=== PATIENT | female | born 1935 | race Two or more races ===

== ENCOUNTER 2018-08-15 12:32 | Inpatient (IN) | payer OTHER, MEDICAID | END 2018-08-17 20:30 | disposition short-term general hospital (02) | LOC: ER 12:32 → TELE 14:27 → TELE-EAST 20:01 | DX: R07.89 Other chest pain (principal); B69.0 Cysticercosis of central nervous system; I10 Essential (primary) hypertension; E03.9 Hypothyroidism, unspecified; I67.2 Cerebral atherosclerosis; R53.1 Weakness; E87.6 Hypokalemia; E83.51 Hypocalcemia; E86.0 Dehydration ==

== ENCOUNTER 2022-04-15 | Emergency (ER) | payer OTHER, MEDICAID ==
[~2022-04-15] VITALS: Ht 152.4 cm; Wt 50.0 kg
[~2022-04-15] MED LIST: ASPI81CH43 PO; LEV50T PO
[2022-04-15 02:09] LABS: Basophils # (auto) 0 10 ^3/uL (0-0.2); Basophils % (auto) 0.4 % (0.0-2.0); Eosinophils # (auto) 0.2 10 ^3/uL (0-0.8); Eosinophils % (auto) 1.8 % (0.0-7.0); Hemoglobin 12.9 g/dL (12.2-16.2); Lymphocytes # (auto) 3.6 10 ^3/uL (0.4-5.4); Mean Corpuscular Volume 91.1 fL (80.0-100.0); Monocytes # (auto) 0.4 10 ^3/uL (0-1.3); Monocytes % (auto) 4.3 % (0.0-12.0); Neutrophils # (auto) 5.6 10 ^3/uL (1.6-8.6); Neutrophils % (auto) 56.5 % (37.0-80.0); Red Blood Cells 4.17 10^6/uL (4.0-5.20); Red Cell Distribution Width 15.4 % (11.8-14.3); White Blood Cell 9.8 10^3/uL (4.4-10.8)
[2022-04-15 02:35] LABS: Urine Bacteria FEW /hpf (None Seen); Urine Blood TRACE /uL (Negative); Urine Specific Gravity 1.006 (1.001-1.035); Urine WBC 6 /hpf (0 - 5)
[2022-04-15 02:46] LABS: Albumin 3.5 g/dL (3.4-5.0); BUN/Creatinine Ratio 17.2; Calcium 8.5 mg/dL (8.5-10.1); Potassium 3.8 mmol/L (3.5-5.1)
[2022-04-15 02:48] LABS: Total Protein 6.8 g/dL (6.4-8.2)
[2022-04-15] MEDS ORDERED: SODIUM CHLORIDE 0.9% 1,000 ML IV ONE ×2 (04:15→09:45)
[2022-04-15] MEDS ORDERED: CEFEPIME 2 GM in SODIUM CHL 0.9% 50 ML IV ONE (04:15)
[2022-04-15] MEDS ORDERED: CEFEPIME 1GM/ 50ML 100 ML IV ONE (04:34)
[2022-04-15 07:56] LABS: Alcohol, Urine < 3.0 mg/dL (0-10); Amphetamine Screen, Urine NEGATIVE (NEGATIVE); Barbiturate Scree,Urine NEGATIVE (NEGATIVE); Benzodiazephine Screen, Urine NEGATIVE (NEGATIVE); Cannabinoid Screen, Urine NEGATIVE (NEGATIVE); Cocaine Screen, Urine NEGATIVE (NEGATIVE); Opiate Scree,Urine NEGATIVE (NEGATIVE); Phencyclidine Screen, Urine NEGATIVE (NEGATIVE)
[2022-04-15 09:55] VITALS: BP 145/68
== END 2022-04-15 04:44 | disposition short-term general hospital (02) ==
LOC: ER → EDBD → ER 04:44
DX: R55 Syncope and collapse (principal); N39.0 Urinary tract infection, site not specified; R77.8 Other specified abnormalities of plasma proteins; I10 Essential (primary) hypertension; Z90.49 Acquired absence of other specified parts of digestive tract; Z90.710 Acquired absence of both cervix and uterus; Z88.6 Allergy status to analgesic agent; Z20.822 Contact with and (suspected) exposure to COVID-19
CPT/HCPCS: 36415; 36600; 70450; 71045; 72125; 80053; 80307; 80320; 81001; 82805; 84484; 85025; 87426; 93005; 96361; 96365; 96366; 99285; J0692; J7030

== ENCOUNTER 2023-03-22 12:12 | Emergency (ER) | payer OTHER, MEDICAID ==
[~2023-03-22] VITALS: Ht 162.6 cm; Wt 52.2 kg
[2023-03-22] MEDS ORDERED: SODIUM CHLORIDE 0.9% 500 ML IV ONE (12:30)
[2023-03-22 13:01] VITALS: PULSE 60; RESP 20; O2SAT 95
[2023-03-22 13:13] LABS: Basophils # (auto) 0 10 ^3/uL (0-0.2); Basophils % (auto) 0.8 % (0.0-2.0); Eosinophils # (auto) 0.1 10 ^3/uL (0-0.8); Eosinophils % (auto) 1.8 % (0.0-7.0); Hematocrit 36.7 % (36.0-46.0); Hemoglobin 12.6 g/dL (12.2-16.2); Lymphocytes % (auto) 22.3 % (10.0-50.0); Mean Corpuscular Hemoglobin 31.9 pg (28.0-32.0); Mean Corpuscular Hgb Conc. 34.4 g/dL (32.0-36.0); Mean Corpuscular Volume 92.9 fL (80.0-100.0); Monocytes # (auto) 0.3 10 ^3/uL (0-1.3); Monocytes % (auto) 5.3 % (0.0-12.0); Neutrophils # (auto) 3.3 10 ^3/uL (1.6-8.6); Neutrophils % (auto) 69.8 % (37.0-80.0); Red Blood Cells 3.95 10^6/uL (4.0-5.20); White Blood Cell 4.7 10^3/uL (4.4-10.8)
[2023-03-22 13:51] LABS: Albumin 3.4 g/dL (3.4-5.0); Calcium 8.5 mg/dL (8.5-10.1); Magnesium 2.7 mg/dL (1.6-2.6); Potassium 3.3 mmol/L (3.5-5.1)
[2023-03-22 13:55] LABS: BUN/Creatinine Ratio 12.4 (10.0-20.0); Bilirubin, Total 1.1 mg/dL (0.2-1.0); Total Protein 6.9 g/dL (6.4-8.2)
[2023-03-22 14:30] LABS: Urine Bacteria NONE SEEN /hpf (None Seen); Urine Blood Negative /uL (Negative); Urine Clarity Clear (Clear); Urine Color Yellow (Yellow); Urine Protein, UAD Negative (Negative); Urine Specific Gravity 1.004 (1.001-1.035); Urine Urobilinogen Normal (Negative); Urine WBC 1 /hpf (0 - 5)
[2023-03-22 15:34] LABS: COVID19 ANTIGEN SOFIA FIA NEGATIVE (NEGATIVE)
[2023-03-22] MEDS ORDERED: POTASSIUM CHL 20 Meq TABLET PO ONE (19:00)
[2023-03-22 19:45] VITALS: O2SAT 96
[2023-03-22 23:42] VITALS: BP 162/93; PULSE 60; RESP 16; TEMP 97.9; O2SAT 92
== END 2023-03-23 00:47 | disposition admitted as inpatient to this hospital (09) ==
LOC: ER 12:12 → EDBD 12:12 → ER 03-23 00:47
DX: R55 Syncope and collapse (principal); R53.1 Weakness; I10 Essential (primary) hypertension; Z88.8 Allergy status to other drugs, medicaments and biological substances; Z88.6 Allergy status to analgesic agent; Z86.73 Personal history of transient ischemic attack (TIA), and cerebral infarction without residual deficits; Z90.49 Acquired absence of other specified parts of digestive tract; Z90.710 Acquired absence of both cervix and uterus; Z20.822 Contact with and (suspected) exposure to COVID-19
CPT/HCPCS: 36415; 70450; 71045; 72125; 80053; 81001; 83605; 83735; 84484; 85025; 87040; 87426; 93005; 96360; 99285; J7040

== ENCOUNTER 2025-03-13 14:25 | Emergency (ER) | payer OTHER, MEDICAID ==
[~2025-03-13] VITALS: Ht 152.4 cm; Wt 63.6 kg
[~2025-03-13 14:25] MED LIST changes: -LEV50T PO; +LEVO-848 PO
[2025-03-13 14:41] VITALS: TEMP 98.2
--- NOTE | 2025-03-13 14:50 | ED.PDOC ---
HPI Comments This is a 89 year old female ERINA presenting to the ED with chief complaint of laceration s/p fall. EMS reports patient had accidentally rolled out of her bed this afternoon, hitting the right side of her forehead against hardwood sarah. EMS relays that the patient is also complaining of associated right elbow pain. Patient denies any LOC, nausea, vomiting, dizziness, headache, SOB, or chest pain. Time Seen by MD: 14:49 Reviewed Notes: Nurses Notes, Gauntlet Pairer Notes, Medications, Allergies Allergies: Coded Allergies: Tramadol (Verified Allergy, Severe, 08/15/18) Home Meds Reported Medications Levothyroxine Sodium (SYNTHROID TABLET) 50 Mcg Tb, 1 TAB PO DAILY, #30 TAB 5 Refills 08/15/18 Aspirin (Asa) 81 Mg Ch, 81 MG PO DAILY 08/15/18 Information Source: Patient, Emergency Med Personnel Mode of Arrival: EMS Severity: Moderate Severity of Laceration: Controlled Bleeding Complexity: Simple Timing: Hours Prehospital treatment: None Laceration Location: Forehead Mechanism: Fall Last Tetanus: Unknown Laceration Length (cm): 2 Skin Type: Linear Depth of Injury: SQ Tendon Injury: 0% Tender: Moderate Discharge: Serosanguinous Erythema: Localized to Wound Edges Past Medical History PAST MEDICAL HISTORY: HTN, Thyroid, TIA Surgical History: Cholecystectomy, Hysterectomy, Pacemaker 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: No Pertinent 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 Family History Family History: Reviewed,noncontributory to illness, Unknown Social History Smoker: Non-Smoker Alcohol: Denies ETOH Use Drugs: Denies Drug Use Lives In: Home Constitutional: denies: chills, diaphoresis, fatigue, fever, malaise, sweats, weakness, others EENTM: denies: blurred vision, double vision, ear bleeding, ear discharge, ear drainage, ear pain, ear ringing, eye pain, eye redness, hearing loss, mouth pain, mouth swelling, nasal discharge, nose bleeding, nose congestion, nose pain, photophobia, tearing, throat pain, throat swelling, voice changes, others Respiratory: denies: cough, hemoptysis, orthopnea, SOB at rest, shortness of breath, SOB with excertion, stridor, wheezing, others Cardiovascular: denies: chest pain, dizzy spells, diaphoresis, Dyspnea on exertion, edema, irregular heart beat, left arm pain, lightheadedness, palpitations, PND, syncope, others Gastrointestinal: denies: abdomen distended, abdominal pain, blood streaked bowels, constipated, diarrhea, dysphagia, difficulty swallowing, hematemesis, melena, nausea, poor appetite, poor fluid intake, rectal bleeding, rectal pain, vomiting, others Genitourinary: denies: abnormal vagina bleeding, burning, dyspareunia, dysuria, flank pain, frequency, hematuria, incontinence, pain, , vagina discharge, urgency, others Neurological: denies: dizziness, fainting, headache, left sided numbness, left sided weakness, numbness, paresthesia, pre-existing deficit, right sided numbness, right sided weakness, seizure, speech problems, tingling, tremors, weakness, others Musculoskeletal: reports: others (Rt elbow pain); denies: back pain, gout, joint pain, joint swelling, muscle pain, muscle stiffness, neck pain Integumetry: reports: laceration; denies: bruises, change in color, change in hair/nails, dryness, lesions, lumps, rash, wounds, others Allergic/Immunocompromised: denies: Difficulty Healing, Frequent Infections, Hives, Itching, others Hematologic/Lymphatic: denies: anemia, blood clots, easy bleeding, easy bruising, swollen glands, others Endocrine: denies: excessive hunger, excessive sweating, excessive thirst, excessive urination, flushing, intolerance to cold, intolerance to heat, unexplained weight gain, unexplained weight loss, others Psychiatric: denies: anxiety, bipolar disorder, depression, hopeless, panic disorder, schizophrenia, sleepless, suicidal, others All Other Systems: Reviewed and Negative Physical Exam General Appearance: Moderate Distress, Normal HEENT: Normal ENT Inspection, Pharynx Normal, TMs Normal Neck: Full Range of Motion, Non-Tender, Normal, Normal Inspection Respiratory: Chest Non-Tender, Lungs Clear, No Accessory Muscle Use, No Respiratory Distress, Normal Breath Sounds Cardiovascular: No Edema, No JVD, No Murmur, No Gallop, Normal Peripheral Pulses, Regular Rate/Rhythm Breast Exam: Deferred Gastrointestinal: No Organomegaly, Non Tender, No Pulsatile Mass, Normal Bowel Sounds, Soft Genitalia: Deferred Pelvic: Deferred Rectal: Deferred Extremities: No calf tenderness, Normal capillary refill, Normal inspection, Normal range of motion, Non-tender, No pedal edema Musculoskeletal : Apperance: Normal Neurologic: Alert, stretching machine tender frame II-XII nml as Tested, No Motor Deficits, Normal Affect, Normal Mood, No Sensory Deficits Cerebellar Function: NOT DONE Reflexes: NOT DONE Skin: Dry, Lacerations (Right eyebrow), Normal Color, Warm Peripheral Pulses: 3+ Radial (R), 3+ Radial (L) Lymphatic: No Adenopathy Was a procedure done? Was a procedure done?: Yes Sedation Sedation?: No Laceration Repair : Location Rt forehead Length 2cm Anesthetic: Lidocaine, Without epi Laceration Repair Prep: Saline, by Irrigation, Manual Scrub Laceration Repair Wound Comple: subcut tissue repair Laceration Repair: Number of sutures (6, 3-0 Ethilon sutures), SQ Informed consent obtained: Yes Risks, benefits, and alternati: Yes EKG EKG : Pulse Rate (adult): 60 Cardiac Rhythm: Paced Differential diagnosis Generic Laceration: Abrasion/Contusion, Laceration X-Ray, Labs, Meds, VS Vital Signs Date Time Temp Pulse Resp B/P (MAP) Pulse Ox O2 Delivery O2 Flow Rate FiO2 03/13/25 14:55 60 03/13/25 14:55 60 03/13/25 14:41 98.2 61 16 138/94 95 98.2 Lab Test 03/13/25 15:11 Range/Units POC Glucose 120 H 70-106 mg/dl Current Medications Medications (Trade) Dose Ordered Sig/Devorah Route Start Time Stop Time Status Last Admin Diphtheria/ Tetanus/Acell Pertussis (Boostrix T-Dap) 0.5 ml ONCE ONCE IM 03/13/25 15:00 03/13/25 15:01 DC 03/13/25 15:17 Sodium Chloride 1,000 ml @ 1,000 mls/hr Q1H ONCE IV 03/13/25 16:30 03/13/25 17:29 03/13/25 16:30 Patient alert. Status post fall. Small laceration of the right eyebrow. Vitals stable. Answering questions. No other injuries. Denies any other symptoms. Moving all extremities. Unknown about tetanus. Was given tetanus. CT of the head reviewed does not show any acute changes. Explained to the patient. Was told to follow up with her primary care physician. Was told to come back if there is any problem. CT Head: [facility] [id number] [place] [id number] Ph: [phone] DIAGNOSTIC IMAGING Diagnostic Imaging Report : [id number] Signed PATIENT: CHAPINCITO CARRASQUILLOCT: [id number] UNIT: [id number] : 1935 LOC: ER ROOM / BED: / AGE / SEX: 89 / F ADM STATUS: REG ER SERVICE 1451 ORDERING PHYSICIAN: ANA HUNT MD PROCEDURE(s): HWOCT - HEAD WITHOUT CONTRAST REASON: fall ORDER NUMBER(s): [id number], ACCESSION NUMBER(s): [id number] Procedure: CT HEAD WITHOUT CONTRAST Study Date and Requested Time: 03/13/2025 03:49 PM History: fall Comparison: CT HEAD WITHOUT CONTRAST on DOS: 03/22/23, HEAD WITHOUT CONTRAST on DOS: 04/15/22 Dose: CTDI: 52.27 mGy DLP: 733.5 cm mGycm Technique: Multiplanar images obtained through the brain without intravenous contrast. Findings: Mild diffuse brain atrophy. Mild chronic small-vessel ischemic changes. Bilateral caudate heads chronic lacunar infarcts. Right basal ganglia calcification. 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 No hemorrhages, masses, mass effect, midline shift, herniation or cytotoxic edema following a large vascular territory. No intra-axial or extra-axial fluid collections. No evidence of hydrocephalus. The basal cisterns are patent. The pituitary gland, sella and parasellar regions are unremarkable. The cerebellar tonsils are in normal position. The cerebellum is unremarkable. There is Bilateral lens replacement. Otherwise, orbits and globes are unremarkable. The paranasal sinuses and mastoids are clear. No acute osseous abnormalities. Right anterolateral supraorbital soft tissue edema and wound with right zygomatic region soft tissue edema. Impression: No evidence of acute intracranial abnormality. Right anterolateral supraorbital soft tissue edema and wound with right zygomatic region soft tissue edema. ATED BY: ISELA WORLEY DO DICTATED DATE/TIME: 03/13/251625 SIGNED BY: ISELA WORLEY DO SIGNED DATE/TIME: 03/13/251625 CC: Rt Elbow XR: [address] [address] Ph: [phone] DIAGNOSTIC IMAGING Diagnostic Imaging Report : [id number] Signed PATIENT: CHAPINCITO CARRASQUILLOCT: [id number] UNIT: [id number] : 1935 LOC: ER ROOM / BED: / AGE / SEX: 89 / F ADM STATUS: REG ER SERVICE 1451 ORDERING PHYSICIAN: ANA HUNT MD PROCEDURE(s): RELB - R ELBOW 2V XRAY REASON: fall ORDER NUMBER(s): [id number], ACCESSION NUMBER(s): [id number] XY R ELBOW 2V XRAY, INDICATION: fall TECHNICAL DATA: Frontal, and lateral views were obtained of the right elbow. COMPARISON: None FINDINGS: No fracture is identified. Joint spaces are maintained. Alignment at the joint is anatomic. Soft tissues are within normal limits. No joint effusion is demonstrated. IMPRESSION: No acute fracture or dislocation of the right elbow. ATED BY: MARIANO FRANK MD DICTATED DATE/TIME: 03/13/25 163 SIGNED BY: MARIANO FRANK MD SIGNED DATE/TIME: 03/13/25 163 CC: Images Reviewed?: Images reviewed and evaluated by me Time of 1ST Reevaluation: 15:48 Reevaluation 1ST: Improved Patient Education/Counseling: Diagnosis, Treatment Family Education/Counseling: No Family Present Departure 1 Departure Time of Disposition: 14:54 Impression: Primary Impression: Head injury Qualified Codes: S09.90XA - Unspecified injury of head, initial encounter Additional Impression: Laceration Disposition: 01 HOME / SELF CARE / HOMELESS Condition: Good Discharged With: Self Critical Care Note Critical Care Time?: No Stability Stability form required: No Heart Score Heart Score: Heart Score Response (Comments) Value History Slightly Suspicious 0 EKG Normal 0 Age >65 2 Risk Factors >3 or Hx ASHD 2 Troponin N/A 0 Total 4 I personally scribed for ANA HUNT MD ([email or web address]) on 03/13/25 at 14:50. Electronically submitted by Jasper Ricci ([email or web address]). I personally scribed for ANA HUNT MD ([email or web address]) on 03/13/25 at 16:36. Electronically submitted by Jasper Ricci ([email or web address]). I personally scribed for ANA HUNT MD ([email or web address]) on 03/13/25 at 16:36. Electronically submitted by Jasper Ricci ([email or web address]). I personally scribed for ANA HUNT MD ([email or web address]) on 03/13/25 at 16:44. Electronically submitted by Jasper Ricci ([email or web address]). I personally scribed for ANA HUNT MD ([email or web address]) on 03/13/25 at 16:57. Electronically submitted by Jasper Ricci ([email or web address]). ANA HUNT MD Mar 13, 2025 14:50
[2025-03-13] MEDS: TETANUS-DIPTH-ACEL PERTUSSIS 0.5ML SYR Tdap IM ONE (15:17)
[2025-03-13 15:35] VITALS: PULSE 60; RESP 19; O2SAT 100
[2025-03-13] MEDS: GASTROGRAFIN 120 ML SOL ONE (15:56)
--- NOTE | 2025-03-13 16:28 | DVH ---
Procedure: CT HEAD WITHOUT CONTRAST Study Date and Requested Time: 03/13/2025 03:49 PM History: fall Comparison: CT HEAD WITHOUT CONTRAST on DOS: 03/22/23, HEAD WITHOUT CONTRAST on DOS: 04/15/22 Dose: CTDI: 52.27 mGy DLP: 733.5 cm mGycm Technique: Multiplanar images obtained through the brain without intravenous contrast. Findings: Mild diffuse brain atrophy. Mild chronic small-vessel ischemic changes. Bilateral caudate heads chron ic lacunar infarcts. Right basal ganglia calcification. Right mesial frontal lobe, right occipital lobe , right parieto-occipital , right occipito-temporal a nd left frontal lobe nonspecific foci of Calcifications which May represent sequela of prior neurocys ticercosis. No hemorrhages, masses, mass effect, midline shift, herniation or cytotoxic edema following a large v ascular territory. No intra-axial or extra-axial fluid collections. No evidence of hydrocephalus. The basal cisterns are patent. The pituitary gland, sella and parasellar regions are unremarkable. The cerebellar tonsils are in nor mal position. The cerebellum is unremarkable. There is Bilateral lens replacement. Otherwise, orbits and globes are unremarkable. The paranasal si nuses and mastoids are clear. No acute osseous abnormalities. Right anterolateral supraorbital soft t issue edema and wound with right zygomatic region soft tissue edema. Impression: No evidence of acute intracranial abnormality. Right anterolateral supraorbital soft tissue edema and wound with right zygomatic region soft tissue edema.
[2025-03-13] MEDS: SODIUM CHLORIDE 0.9% 1,000 ML IV ONE (16:30)
--- NOTE | 2025-03-13 16:32 | DVH ---
XY R ELBOW 2V XRAY, INDICATION: fall TECHNICAL DATA: Frontal, and lateral views were obtained of the right elbow. COMPARISON: None FINDINGS: No fracture is identified. Joint spaces are maintained. Alignment at the joint is anatomic. Soft tiss ues are within normal limits. No joint effusion is demonstrated. IMPRESSION: No acute fracture or dislocation of the right elbow.
[2025-03-13 17:28] VITALS: BP 161/88; PULSE 60; RESP 12; O2SAT 94
--- NOTE | 2025-03-13 18:28 | ECG ---
[facility] Test Date: 2025-03-13 Test Time: 14:52:00 Pat Name: KORINA CARRASQUILLO Department: ED Room: Gender: F Project Lead: OMEGA : 1935 Requested By: ANA HUNT Order Number: [id number] Reading MD: Vadim Lynch Measurements Intervals Shelley Rate: 60 P: 0 WI: 60 QRS: -31 QRSD: 117 T: 147 QT: 449 QTc: 449 Interpretive Statements Atrial-paced rhythm Nonspecific intraventricular conduction delay Inferior infarct, old Lateral leads are also involved Electronically Signed On 03-16-2025 22:02:33 PDT by Vadim Lynch Please click the below link to view image of tracing.
== END 2025-03-13 18:10 | disposition home or self-care (01) ==
LOC: EDBD 14:25 → ER 14:25
DX: S01.81XA Laceration without foreign body of other part of head, initial encounter (principal); R06.02 Shortness of breath; Z79.899 Other long term (current) drug therapy; I10 Essential (primary) hypertension; E03.9 Hypothyroidism, unspecified; Z79.82 Long term (current) use of aspirin; Z86.73 Personal history of transient ischemic attack (TIA), and cerebral infarction without residual deficits; Z90.49 Acquired absence of other specified parts of digestive tract; Z90.710 Acquired absence of both cervix and uterus; Z95.0 Presence of cardiac pacemaker; Z88.5 Allergy status to narcotic agent; W22.03XA Walked into furniture, initial encounter; Y93.89 Activity, other specified; Y92.89 Other specified places as the place of occurrence of the external cause; Y99.8 Other external cause status
CPT/HCPCS: 12011; 70450; 73070; 82947; 90471; 90715; 93005; 99285; J7030; Q9963; 82962

== ENCOUNTER 2025-03-17 14:54 | Inpatient (IN) | payer OTHER, MEDICAID ==
[~2025-03-17] VITALS: Ht 157.5 cm; Wt 55.4 kg
--- NOTE | 2025-03-17 15:28 | ED.PDOC ---
History of Present Illness HPI Comments 89y F who presents to the ED via EMS for chief complaint of hypotension. Per EMS, pt was sitting down 1 hour prior and pt caregiver states pt told her she felt dizzy and felt she was going to have a syncopal episode. Pt did not have syncopal episode but states she started to have chest pain and EMS was called. Pt states her chest pain was 8/10, but otherwise denies any other symptoms. EMS arrived on scene and checked vitals, and noted BP of 70/48 and pt was given 500 ml bolus and pt BP judy of 115/55. EMS notes pt had 02 sat of 92% on room air and pt 02 sat judy of 95% on 2 L. Pt now in the ED, is alert and oriented. Pt does have noted facial trauma and caregiver states pt did have fall on sunday, 4 days prior and was evaluated with noted stitches placed and discharged. Time Seen by MD: 15:15 Reviewed Notes: Nurses Notes, Medications, Allergies Allergies: Coded Allergies: Tramadol (Verified Allergy, Severe, 08/15/18) Home Meds Reported Medications Levothyroxine Sodium (SYNTHROID TABLET) 50 Mcg Tb, 1 TAB PO DAILY, #30 TAB 5 Refills 08/15/18 Aspirin (Asa) 81 Mg Ch, 81 MG PO DAILY 08/15/18 Information Source: Patient, Friend (caregiver), Emergency Med Personnel Mode of Arrival: EMS Severity: Moderate Timing: Hours Duration: Since onset Prehospital treatment: IVF Medication Refill: For: Other (hypotension) Past Medical History PAST MEDICAL HISTORY: HTN, Thyroid, TIA Surgical History: Cholecystectomy, Hysterectomy, Pacemaker RN ADMISSIONS History: No Pertinent RN ADMISSIONS History Family History Family History: Reviewed,noncontributory to illness, Unknown Social History Smoker: Non-Smoker Alcohol: Denies ETOH Use Drugs: Denies Drug Use Lives In: Home Constitutional: reports: malaise, weakness; denies: chills, diaphoresis, fatigue, fever, sweats, others EENTM: denies: blurred vision, double vision, ear bleeding, ear discharge, ear drainage, ear pain, ear ringing, eye pain, eye redness, hearing loss, mouth pain, mouth swelling, nasal discharge, nose bleeding, nose congestion, nose pain, photophobia, tearing, throat pain, throat swelling, voice changes, others Respiratory: denies: cough, hemoptysis, orthopnea, SOB at rest, shortness of breath, SOB with excertion, stridor, wheezing, others Cardiovascular: denies: chest pain, dizzy spells, diaphoresis, Dyspnea on exertion, edema, irregular heart beat, left arm pain, lightheadedness, palpitations, PND, syncope, others Gastrointestinal: denies: abdomen distended, abdominal pain, blood streaked bowels, constipated, diarrhea, dysphagia, difficulty swallowing, hematemesis, melena, nausea, poor appetite, poor fluid intake, rectal bleeding, rectal pain, vomiting, others Genitourinary: denies: abnormal vagina bleeding, burning, dyspareunia, dysuria, flank pain, frequency, hematuria, incontinence, pain, , vagina discharge, urgency, others Neurological: denies: dizziness, fainting, headache, left sided numbness, left sided weakness, numbness, paresthesia, pre-existing deficit, right sided n umbness, right sided weakness, seizure, speech problems, tingling, tremors, weakness, others Musculoskeletal: denies: back pain, gout, joint pain, joint swelling, muscle pain, muscle stiffness, neck pain, others Integumetry: denies: bruises, change in color, change in hair/nails, dryness, laceration, lesions, lumps, rash, wounds, others Allergic/Immunocompromised: denies: Difficulty Healing, Frequent Infections, Hives, Itching, others Hematologic/Lymphatic: denies: anemia, blood clots, easy bleeding, easy bruising, swollen glands, others Endocrine: denies: excessive hunger, excessive sweating, excessive thirst, excessive urination, flushing, intolerance to cold, intolerance to heat, unexplained weight gain, unexplained weight loss, others Psychiatric: denies: anxiety, bipolar disorder, depression, hopeless, panic disorder, schizophrenia, sleepless, suicidal, others All Other Systems: Reviewed and Negative Physical Exam General Appearance: Moderate Distress HEENT: Pharynx Normal, TMs Normal, Other (Bruising to the facial area) Neck: Full Range of Motion, Non-Tender, Normal, Normal Inspection Respiratory: Chest Non-Tender, Lungs Clear, No Accessory Muscle Use, No Respiratory Distress, Normal Breath Sounds Cardiovascular: No Edema, No JVD, No Murmur, No Gallop, Normal Peripheral Pulses, Regular Rate/Rhythm Breast Exam: Deferred Gastrointestinal: No Organomegaly, Non Tender, No Pulsatile Mass, Normal Bowel Sounds, Soft Genitalia: Deferred Pelvic: Deferred Rectal: Deferred Extremities: No calf tenderness, Normal capillary refill, No pedal edema Musculoskeletal : Apperance: Normal 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 Was a procedure done?: No EKG EKG : Pulse Rate (adult): 60 [place]: Normal Cardiac Rhythm: Paced Block: None Hypertrophy: None ST: Normal Differential Dx Considerations may include: dehydration, anemia, sepsis, angina, PNA, UTI, generalized weakness, X-Ray, Labs, Meds, VS Vital Signs Date Time Temp Pulse Resp B/P (MAP) Pulse Ox O2 Delivery O2 Flow Rate FiO2 03/17/25 19:03 98.3 92 18 113/62 (79) 98 98.3 03/17/25 18:11 60 03/17/25 18:00 119 19 124/64 (84) 97 03/17/25 17:30 Room Air* 0 21 03/17/25 16:25 60 03/17/25 15:45 97.9 60 16 115/55 95 97.9 03/17/25 15:28 60 03/17/25 15:01 60 Lab Test 03/17/25 15:37 03/17/25 15:25 Range/Units White Blood Count 5.2 4.4-10.8 10^3/uL Red Blood Count 3.45 L 4.0-5.20 10^6/uL Hemoglobin 11.2 L 12.2-16.2 g/dL Hematocrit 32.7 L 36.0-46.0 % Mean Corpuscular Volume 94.9 80.0-100.0 fL Mean Corpuscular Hemoglobin 32.6 H 28.0-32.0 pg Mean Corpuscular Hemoglobin Concent 34.3 32.0-36.0 g/dL Red Cell Distribution Width 15.1 H 11.8-14.3 % Platelet Count 166 140-450 10^3/uL Mean Platelet Volume 8.0 6.9-10.8 fL Neutrophils (%) (Auto) 65.1 37.0-80.0 % Lymphocytes (%) (Auto) 26.0 10.0-50.0 % Monocytes (%) (Auto) 6.2 0.0-12.0 % Eosinophils (%) (Auto) 2.2 0.0-7.0 % Basophils (%) (Auto) 0.5 0.0-2.0 % Neutrophils # (Auto) 3.3 1.6-8.6 10 ^3/uL Lymphocytes # (Auto) 1.3 0.4-5.4 10 ^3/uL Monocytes # (Auto) 0.3 0-1.3 10 ^3/uL Eosinophils # (Auto) 0.1 0-0.8 10 ^3/uL Basophils # (Auto) 0 0-0.2 10 ^3/uL Nucleated Red Blood Cells 0.1 % Sodium Level 142 136-145 mmol/L Potassium Level 3.4 L 3.5-5.1 mmol/L Chloride Level 109 H 98-107 mmol/L Carbon Dioxide Level 27 20-31 mmol/L Anion Gap 6 5-15 Blood Urea Nitrogen 18 9-23 mg/dL Creatinine 1.40 H 0.550-1.02 mg/dL Glomerular Filtration Rate Calc 36 >90 mL/min BUN/Creatinine Ratio 12.9 10.0-20.0 Serum Glucose 101 74-106 mg/dL Calcium Level 7.8 L 8.7-10.4 mg/dL Troponin I High Sensitivity 549 *H </=34 ng/L Lactic Acid Level 1.2 0.4-2.0 mmol/L IV Hep-Lock was established The CBC is within normal limits except for mild anemia with a hemoglobin of 11.2 hematocrit of 32.7 The chemistry panel is within normal limits The 1st troponin level came back at 549 We did review the EKG with Dr. Morse because the patient has a pacemaker. Dr. Morse will come and evaluate the patient. The patient did receive aspirin The patient is being admitted at this time. We did contact [facility] and did let them know that the patient was unstable for transfer secondary to the hypotension as well as the possible non STEMI They gave authorization for admission with an authorization number of [id number] Images Reviewed?: Images reviewed and evaluated by me Time of 1ST Reevaluation: 17:48 Reevaluation 1ST: Unchanged Patient Education/Counseling: Diagnosis, Treatment, Prognosis Family Education/Counseling: Diagnosis, Treatment, Prognosis SEPSIS Sepsis Screen Physician Orders Urinalysis (03/17/25 15:17) Head Without Contrast (03/17/25 15:17) Directional Driller (03/17/25 15:17) Pulse Oximetry (03/17/25 15:17) Blood Pressure (03/17/25 15:17) Heplock Iv (03/17/25 15:17) Blood Culture (03/17/25 15:17) Vital Signs Date Time Temp Pulse Resp B/P (MAP) Pulse Ox O2 Delivery O2 Flow Rate FiO2 03/17/25 19:03 98.3 92 18 113/62 (79) 98 98.3 03/17/25 18:11 60 03/17/25 18:00 119 19 124/64 (84) 97 03/17/25 17:30 Room Air* 0 21 03/17/25 16:25 60 03/17/25 15:45 97.9 60 16 115/55 95 97.9 03/17/25 15:28 60 03/17/25 15:01 60 Laboratory Tests Test 03/17/25 15:25 03/17/25 15:37 Lactic Acid Level 1.2 mmol/L (0.4-2.0) White Blood Count 5.2 10^3/uL (4.4-10.8) Departure 1 Departure Time of Disposition: 17:48 Impression: Primary Impression: Chest pain Qualified Codes: R07.9 - Chest pain, unspecified Additional Impressions: Episode of syncope Qualified Codes: R55 - Syncope and collapse Generalized weakness Non-STEMI (non-ST elevated myocardial infarction) Disposition: 09 ADMITTED INPATIENT Admit to: Tele Condition: Fair Critical Care Note Critical Care Time?: Yes (55 min-critical care time only) Stability Stability form required: Yes Unstable for transfer: Telemetry monitoring (Telemetry monitoring required), ED Physician Assesment (Clinical assesment) Heart Score Heart Score: Heart Score Response (Comments) Value History Moderate Suspicious 1 EKG Repolarization Disturb 1 Age >65 2 Risk Factors 1 or 2 risk factors 1 Troponin >3 x's Normal limit 2 Total 7 I personally scribed for MANUEL PERRY MD ([email or web address]) on 03/17/25 at 15:28. Electronically submitted by Raya Chapman ([email or web address]). MANUEL PERRY MD Mar 17, 2025 15:28
[2025-03-17 15:58] LABS: Hematocrit 32.7 % (36.0-46.0); Hemoglobin 11.2 g/dL (12.2-16.2); Mean Corpuscular Hemoglobin 32.6 pg (28.0-32.0); Mean Corpuscular Volume 94.9 fL (80.0-100.0); Nucleated Red Blood Cells % 0.1 %
[2025-03-17 16:04] LABS: Anion Gap 6 (5-15); Carbon Dioxide 27 mmol/L (20-31); Sodium 142 mmol/L (136-145)
[2025-03-17 16:07] LABS: Calcium 7.8 mg/dL (8.7-10.4); Chloride 109 mmol/L (98-107); Potassium 3.4 mmol/L (3.5-5.1)
[2025-03-17 16:10] LABS: BUN/Creatinine Ratio 12.9 (10.0-20.0); Blood Urea Nitrogen 18 mg/dL (9-23); Glucose 101 mg/dL (74-106)
--- NOTE | 2025-03-17 16:28 | ECG ---
[facility] Test Date: 2025-03-17 Test Time: 16:25:51 Pat Name: KORINA CARRASQUILLO Department: ER Room: 0221T Gender: F Cutter First: MADINA : 1935 Requested By: MANUEL PERRY Order Number: [id number] Reading MD: Vadim Lynch Measurements Intervals [place] Rate: 60 P: 0 [place]: 186 QRS: 2 QRSD: 125 T: 139 QT: 464 QTc: 464 Interpretive Statements Atrial-paced rhythm Nonspecific intraventricular conduction delay Inferior infarct, old Lateral leads are also involved Low voltage in frontal leads Electronically Signed On 03-23-2025 17:44:20 PDT by Vadim Lynch Please click the below link to view image of tracing.
--- NOTE | 2025-03-17 18:22 | DVH ---
CT HEAD WITHOUT CONTRAST Indication: lozano EXAM DATE: 03/17/2025 05:53 PM COMPARISON: CT HEAD WITHOUT CONTRAST on DOS: 03/13/25, CT HEAD WITHOUT CONTRAST on DOS: 03/22/23, HEAD W ITHOUT CONTRAST on DOS: 04/15/22 TECHNIQUE: CT of the head without intravenous contrast. RADIATION DOSE: CTDIvol: 51.94 mGy, DLP: 51.94 mGy*cm FINDINGS: There is no intracranial hemorrhage. There is no extra-axial fluid, mass, mass effect or midline shif t. The ventricles are midline and normal in size. Basilar cisterns are patent. There are mild periven tricular and subcortical white matter chronic microvascular ischemic changes. 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 Mild global cerebral volume loss. The paranasal sinuses and mastoids are well-pneumatized. Imaged portion of the orbits are unremarkabl e. Small right frontal scalp hematoma IMPRESSION: No intracranial hemorrhage or mass effect. Mild chronic microvascular ischemic changes. Mild global cerebral volume loss. Small right frontal scalp hematoma.
[2025-03-17] MEDS ORDERED: MORPHINE SULFATE INJ 2 MG/ml SYRG IV PRN (20:00)
[2025-03-17] MEDS ORDERED: ACETAMINOPHEN 325 MG TAB PO PRN (20:00)
[2025-03-17] MEDS ORDERED: ONDANSETRON HCL 4 MG/2 ML VIAL IV PRN (20:00)
[2025-03-17] MEDS: ENOXAPARIN SOD 60 MG/0.6 ML SYRINGE SC ONE (20:00)
[2025-03-17] MEDS ORDERED: NITROGLYCERIN 0.4 MG SL TAB SL PRN (20:00)
[2025-03-17 20:26] VITALS: PULSE 60; RESP 20; O2SAT 97
[2025-03-17] MEDS: ATORVASTATIN 20 MG TAB PO SCH (21:34)
[2025-03-17 21:45] VITALS: PULSE 62; RESP 18; O2SAT 98
--- NOTE | 2025-03-17 21:57 | DVHHP2 ---
History of Present Illness Reason for Visit: Low blood pressure History of Present Illness 89-year-old female presents for evaluation of low blood pressure. Patient was seen four days ago after sustaining a fall when she became dizzy and fell. She was discharged home in stable condition. Today she returns again neutrophilic dizzy and having a near syncopal episode. Her blood pressure was low in the 70s. Currently she is alert and oriented. Denies chest pain or palpitations. No other acute complaints. Past Medical History Hypotension, thyroid, TIA Past Surgical History Hysterectomy, pacemaker, cholecystectomy Family History Noncontributory Smoke: No ALCOHOL: none Drugs: None Lives: with Family Review of Systems Review of Systems Review of systems are currently negative otherwise addressed in HPI. Allergies: Coded Allergies: Tramadol (Verified Allergy, Severe, 08/15/18) Medications Current Medications Medications Dose Ordered Sig/Devorah Route Start Time Stop Time Status Last Admin Dose Admin Nitroglycerin 0.4 mg Q5MINP PRN SL 03/17/25 20:00 Morphine Sulfate 2 mg Q30M PRN IV 03/17/25 20:00 Levothyroxine Sodium 50 mcg QAM@0600 PO 03/18/25 06:00 Atorvastatin Calcium 40 mg HS PO 03/17/25 22:00 03/17/25 21:34 40 MG Ondansetron HCl 4 mg Q4HP PRN IV 03/17/25 20:00 Enoxaparin Sodium 30 mg DAILY@1800 SC 03/18/25 18:00 Acetaminophen 650 mg Q6HP PRN PO 03/17/25 20:00 Exam Vital Signs Vital Signs Date Time Temp Pulse Resp B/P (MAP) Pulse Ox O2 Delivery O2 Flow Rate FiO2 03/17/25 20:26 60 20 97 Room Air* 0 21 03/17/25 20:26 98.2 120/76 (91) 98.2 Exam Gen: 89-year-old female in no apparent distress Skin: Warm, dry, normal color and texture, no rash. HEENT: Normocephalic atraumatic, mucous membranes moist and pink. Neck: Cervical and supraclavicular nodes normal without enlargement, trachea is midline, thyroid gland is normal without masses. Pulmonary: Clear to auscultation and percussion bilaterally. Cardiac: Regular rate and rhythm. No murmur Abdomen: Soft, nontender, nondistended, bowel sounds present all 4 quadrants, no guarding, no rigidity, no organomegaly. Extremities: No cyanosis, clubbing, no edema Neuro: Cranial nerves II through XII grossly intact, normal affect and speech, no focal motor deficits. Labs/Xrays GE / SEX: 89 / F ADM STATUS: REG ER SERVICE [id number] ORDERING PHYSICIAN: MANUEL PERRY MD PROCEDURE(s): HWOCT - HEAD WITHOUT CONTRAST REASON: lozano ORDER NUMBER(s): [id number], ACCESSION NUMBER(s): [id number] CT HEAD WITHOUT CONTRAST Indication: lozano EXAM DATE: 03/17/2025 05:53 PM COMPARISON: CT HEAD WITHOUT CONTRAST on DOS: 03/13/25, CT HEAD WITHOUT CONTRAST on DOS: 03/22/23, HEAD WITHOUT CONTRAST on DOS: 04/15/22 TECHNIQUE: CT of the head without intravenous contrast. RADIATION DOSE: CTDIvol: 51.94 mGy, DLP: 51.94 mGy*cm FINDINGS: There is no intracranial hemorrhage. There is no extra-axial fluid, mass, mass effect or midline shift. The ventricles are midline and normal in size. Basilar cisterns are patent. There are mild periventricular and subcortical white matter chronic microvascular ischemic changes. Old bilateral basal ganglia lacunar infarcts. Mild global cerebral volume loss. The paranasal sinuses and mastoids are well-pneumatized. Imaged portion of the orbits are unremarkable. Small right frontal scalp hematoma IMPRESSION: No intracranial hemorrhage or mass effect. Mild chronic microvascular ischemic changes. Mild global cerebral volume loss. Small right frontal scalp hematoma. Labs Test 03/17/25 20:49 03/17/25 15:37 03/17/25 15:25 Range/Units Troponin I High Sensitivity 530 *H </=34 ng/L White Blood Count 5.2 4.4-10.8 10^3/uL Red Blood Count 3.45 L 4.0-5.20 10^6/uL Hemoglobin 11.2 L 12.2-16.2 g/dL Hematocrit 32.7 L 36.0-46.0 % Mean Corpuscular Volume 94.9 80.0-100.0 fL Mean Corpuscular Hemoglobin 32.6 H 28.0-32.0 pg Mean Corpuscular Hemoglobin Concent 34.3 32.0-36.0 g/dL Red Cell Distribution Width 15.1 H 11.8-14.3 % Platelet Count 166 140-450 10^3/uL Mean Platelet Volume 8.0 6.9-10.8 fL Neutrophils (%) (Auto) 65.1 37.0-80.0 % Lymphocytes (%) (Auto) 26.0 10.0-50.0 % Monocytes (%) (Auto) 6.2 0.0-12.0 % Eosinophils (%) (Auto) 2.2 0.0-7.0 % Basophils (%) (Auto) 0.5 0.0-2.0 % Neutrophils # (Auto) 3.3 1.6-8.6 10 ^3/uL Lymphocytes # (Auto) 1.3 0.4-5.4 10 ^3/uL Monocytes # (Auto) 0.3 0-1.3 10 ^3/uL Eosinophils # (Auto) 0.1 0-0.8 10 ^3/uL Basophils # (Auto) 0 0-0.2 10 ^3/uL Nucleated Red Blood Cells 0.1 % Sodium Level 142 136-145 mmol/L Potassium Level 3.4 L 3.5-5.1 mmol/L Chloride Level 109 H 98-107 mmol/L Carbon Dioxide Level 27 20-31 mmol/L Anion Gap 6 5-15 Blood Urea Nitrogen 18 9-23 mg/dL Creatinine 1.40 H 0.550-1.02 mg/dL Glomerular Filtration Rate Calc 36 >90 mL/min BUN/Creatinine Ratio 12.9 10.0-20.0 Serum Glucose 101 74-106 mg/dL Calcium Level 7.8 L 8.7-10.4 mg/dL Lactic Acid Level 1.2 0.4-2.0 mmol/L SEPSIS Sepsis Screen Date sepsis recognized/suspect: Mar 17, 2025 Time Sepsis recognized/suspect: 20:29 Recent Procedure: No On Antibiotic Therapy: No Respiratory Rate >20: No Heart Rate >90: No Temp<36 C (96.8 F) or >38.3 C: No SBP <90 or MAP <65 mmHG: No New Acute Mental Status Change: No Is the patient on CPAP, BIPAP,: No Physician Orders Urinalysis (03/17/25 15:17) Head Without Contrast (03/17/25 15:17) [employer] Consultant (03/17/25 15:17) Pulse Oximetry (03/17/25 15:17) Blood Pressure (03/17/25 15:17) Heplock Iv (03/17/25 15:17) Blood Culture (03/17/25 15:17) Admit (03/17/25 19:51) Nitroglycerin Sublingual (Ntrostat Subli (03/17/25 20:00) Morphine Sulfate Injection (03/17/25 20:00) Stat Ekg For Chest Pain (03/17/25 19:51) Notify Md Of Changes From Base (03/17/25 19:51) Incinerator Operator For 24 Hours (03/17/25 19:51) Emergency Dysrhythmia Protocol (03/17/25 19:51) Rhythm Strips Once Every Shift (03/17/25 19:51) Oxygen By Nasal Cannula (03/17/25 19:51) Levothyroxine Tablet (Synthroid Tablet) (03/18/25 06:00) Atorvastatin (Lipitor) (03/17/25 22:00) * Cardiology Consult (03/17/25 19:53) Basic Metabolic Panel (03/18/25 04:00) Ondansetron Hcl (Zofran) (03/17/25 20:00) Cardiac Diet-2gna,Lofat,Lochol (03/18/25 Breakfast) Echo 2d Mode Cardiac Dop (03/17/25 19:53) Condition: Fair (03/17/25 19:53) Acetaminophen Tablet (Tylenol Tablet) (03/17/25 20:00) Bedrest With Bathroom Privileg (03/17/25 19:53) Enoxaparin Sodium (Lovenox) (03/18/25 18:00) Vital Signs Date Time Temp Pulse Resp B/P (MAP) Pulse Ox O2 Delivery O2 Flow Rate FiO2 03/17/25:26 60 20 97 Room Air* 0 21 03/17/25 20:26 98.2 63 20 120/76 (91) 97 98.2 03/17/25 19:03 98.3 92 18 113/62 (79) 98 98.3 03/17/25 18:11 60 03/17/25 18:00 119 19 124/64 (84) 97 03/17/25 17:30 Room Air* 0 21 03/17/25 16:25 60 03/17/25 15:45 97.9 60 16 115/55 95 97.9 03/17/25 15:28 60 03/17/25 15:01 60 Laboratory Tests Test 03/17/25 15:25 03/17/25 15:37 Lactic Acid Level 1.2 mmol/L (0.4-2.0) White Blood Count 5.2 10^3/uL (4.4-10.8) Medications Medications Dose Ordered Sig/Devorah Route Start Time Stop Time Status Last Admin Dose Admin Atorvastatin Calcium 40 mg HS PO 03/17/25 22:00 03/17/25 21:34 40 MG Enoxaparin Sodium 60 mg ONCE ONCE SC 03/17/25 20:00 03/17/25 20:37 DC 03/17/25 20:00 60 MG Assessment/Plan Assessment/Plan Assessment NSTEMI Symptomatic hypotension Near-syncope Status post pacemaker Plan Admit the patient to telemetry to the hospitalist Echocardiogram pending Hold antihypertensives Orthostatic vital signs Continue treatment per orders. Plan discussed with: Patient My Orders Orders - NII PEREZ Procedure Category Date Status Time Admit ADMIT 03/17/25 Transmitted 19:51 Nitroglycerin [facility] 03/17/25 In Process Sublingual (Ntrostat 20:00 Morphine Sulfate PHA 03/17/25 In Process Injection 20:00 Stat Ekg For Chest [facility] 03/17/25 In Process Pain 19:51 Notify Of Changes [facility] 03/17/25 In Process From Base 19:51 Incinerator Operator For [facility] 03/17/25 In Process 24 Hours 19:51 Emergency Dysrhythmia [facility] 03/17/25 In Process Protocol 19:51 Rhythm Strips Once [facility] 03/17/25 In Process Every Shift 19:51 Oxygen By Nasal RT 03/17/25 Transmitted Cannula 19:51 Levothyroxine Tablet [facility] 03/18/25 In Process (Synthroid Tablet) 06:00 Atorvastatin (Lipitor) PH[facility] 03/17/25 In Process 22:00 * Cardiology Consult CONS 03/17/25 Transmitted 19:53 Basic Metabolic Panel LAB 03/18/25 Verified 04:00 Ondansetron Hcl PHA 03/17/25 In Process (Zofran) 20:00 Cardiac DIET 8/6/25 Transmitted Diet-2gna,Lofat,Lochol Breakfast Echo 2d Mode Cardiac US 03/17/25 Logged DOP 19:53 Condition: Fair [facility] 03/17/25 In Process 19:53 Acetaminophen Tablet [facility] 03/17/25 In Process (Tylenol Tablet) 20:00 Bedrest With Bathroom [facility] 03/17/25 In Process Privileg 19:53 Enoxaparin Sodium PHA 03/18/25 In Process (Lovenox) 18:00 Date of Service: Mar 17, 2025 Billing Provider: NII PEREZ Common Visit Codes: [id number] INP/OBS CARE (HIGH) NII PEREZ Mar 17, 2025 21:57
[2025-03-17 22:10] VITALS: BP 144/90; PULSE 65; RESP 18; TEMP 97.7; O2SAT 97
[2025-03-17] MEDS ORDERED: POTA-36 PO (23:42)
[2025-03-18] VITALS (8 sets, daily range): BP systolic 90–178; BP diastolic 54–111; PULSE 60–64; RESP 16–18; TEMP 97.2–98; O2SAT 93–99
[2025-03-18] MEDS ORDERED: LACT10SO3 PO (05:04)
[2025-03-18] MEDS ORDERED: HYDR25TA4 PO (05:04)
[2025-03-18] MEDS ORDERED: ATOR40TA52 PO (05:04)
[2025-03-18] MEDS ORDERED: BRIM0.2S17 EACHEYE (05:15)
[2025-03-18] MEDS ORDERED: CHOL20007 PO (05:15)
[2025-03-18] MEDS ORDERED: DORZ2SOL18 EACHEYE (05:15)
[2025-03-18] MEDS ORDERED: MIDO2.5T15 PO (05:15)
[2025-03-18] MEDS ORDERED: LIDO5DIS21 TOP (05:15)
[2025-03-18] MEDS ORDERED: CYCL0.05 EACHEYE (05:15)
[2025-03-18] MEDS: LEVOTHYROXINE SODIUM 50 MCG TAB PO SCH (05:32)
[2025-03-18 07:28] LABS: Sodium 143 mmol/L (136-145)
[2025-03-18 07:29] LABS: Anion Gap 9 (5-15); Carbon Dioxide 27 mmol/L (20-31)
[2025-03-18 07:34] LABS: Glucose 106 mg/dL (74-106)
[2025-03-18 07:35] LABS: BUN/Creatinine Ratio 15.8 (10.0-20.0); Blood Urea Nitrogen 18 mg/dL (9-23)
[2025-03-18 07:36] LABS: Calcium 8.0 mg/dL (8.7-10.4); Chloride 107 mmol/L (98-107); Potassium 3.3 mmol/L (3.5-5.1)
[2025-03-18 08:41] LABS: Hematocrit 35.0 % (36.0-46.0); Hemoglobin 12.3 g/dL (12.2-16.2); Mean Corpuscular Hemoglobin 33.1 pg (28.0-32.0); Mean Corpuscular Volume 93.7 fL (80.0-100.0); Nucleated Red Blood Cells % 0.0 %
[2025-03-18 08:57] LABS: Triglycerides 135.0 mg/dL (< 150)
[2025-03-18 08:58] LABS: Magnesium 2.0 mg/dL (1.6-2.6)
[2025-03-18 08:59] LABS: Cholesterol 83.0 mg/dL (< 200)
[2025-03-18 09:01] LABS: HDL Cholesterol 35.0 mg/dL (40-59)
[2025-03-18] MEDS: hydrALAZINE HCL 20 MG/ML VL IV ONE (09:22)
--- NOTE | 2025-03-18 10:12 | DVHINCON2 ---
Date Seen: Mar 18, 2025 Referring Physician LELE Jones Reason for Consultation Elevated troponin History of Present Illness This is a Italian-speaking 89-year-old female patient who presents to the emergency room with chief complaint of hypotension and chest pain. The patient reports that symptoms began yesterday morning. She states that she initially began to feel dizzy and then started mentioning chest pain. Her caregiver called EMS. Upon EMS arrival, the patient was noted to have blood pressures reaching as low as 70/48. The patient describes the chest pain as unprovoked, intermittent, dull in nature, right-sided and nonradiating. She denies any alleviating or aggravating factors. At time of assessment, she denies any chest pain and states that she only had one episode of chest pain at home prior to emergency room arrival. Initial twelve lead electrocardiogram reveals atrial paced rhythm with nonspecific ST segment changes to lateral leads. Initial troponin level of 549ng/L with flat trend thereafter. Significant past medical history includes hypotension, dyslipidemia, presence of permanent pacemaker ([employer]), COPD, hypothyroidism, glaucoma, and osteoporosis. Of note, the patient recently had a mechanical fall four days ago. The patient is noted to have bruising on right side of face including right forehead, right periorbital region, and right cheek. Patient states that at that time she was getting back into bed when she accidentally rolled out of bed falling down face first. Past Medical History Past medical history reviewed. No other significant than mentioned above. Past Surgical History Recent generator exchange on permanent pacemaker on 04/17/2024 at [place] Family History: Cardiovascular disease G8 MOTHER Diabetes mellitus G8 MOTHER G8 BROTHER G8 BROTHER G8 SISTER FH: cancer G8 BROTHER Family History Family history reviewed. Social History Denies the use of tobacco, alcohol or illicit drugs. Allergies: Coded Allergies: Tramadol (Verified Allergy, Severe, 08/15/18) Home Meds Reported Medications Cholecalciferol (VITAMIN D3) 2,000 Unit Tab, 1 TAB PO DAILY, #30 TAB 5 Refills 03/18/25 Midodrine HCl (Midodrine Hydrochloride) 2.5 Mg Tab, 2.5 MG PO, TAB 03/18/25 Dorzolamide-Timolol (Dorzolamide Hcl/Timolol M) 1 Ml Chari, 1 DROP EACHEYE BID, #10 ML 6 Refills 03/18/25 Cyclosporine (Ophth) (Restasis) 0.05 % Emu, 1 DROP EACHEYE BID, #60 VIAL 3 Refills 03/18/25 Brimonidine Tartrate (Brimonidine Tartrate) 0.2 % Chari, 1 DROP EACHEYE BID, #10 ML 3 Refills 03/18/25 Lidocaine (LIDODERM 5% TOPICAL PATCH) 1 Patch Ph, 1 PATCH TOP DAILY, #30 PATCH 1 Refill 03/18/25 Lactulose (Lactulose) 10 Gm/15 Ml Chari, 10 GM PO, ML 03/18/25 Hydrochlorothiazide (Hydrochlorothiazide) 25 Mg Tab, 1 TAB PO DAILY, #30 TAB 5 Refills 03/18/25 Atorvastatin Calcium (ATORVASTATIN CALCIUM) 40 Mg Tab, 1 TAB PO DAILY, #30 TAB 5 Refills 03/18/25 Potassium Chloride (POTASSIUM CHLORIDE CR) 10 Meq Tb, 1 TAB PO DAILY, #30 TAB 5 Refills 03/17/25 Levothyroxine Sodium (SYNTHROID TABLET) 50 Mcg Tb, 1 TAB PO DAILY, #30 TAB 5 Refills 08/15/18 Aspirin (Asa) 81 Mg Ch, 81 MG PO DAILY 08/15/18 Home Meds Home medications reviewed. Current Medications Current Medications Medications (Trade) Dose Ordered Sig/Devorah Route PRN Reason Start Time Stop Time Status Last Admin Nitroglycerin (Ntrostat Sublingual) 0.4 mg Q5MINP PRN SL FOR CHEST PAIN 03/17/25 20:00 Morphine Sulfate 2 mg Q30M PRN IV FOR CHEST PAIN 03/17/25 20:00 Levothyroxine Sodium (Synthroid Tablet) 50 mcg QAM@0600 PO 03/18/25 06:00 03/18/25 05:32 Atorvastatin Calcium (Lipitor) 40 mg HS PO 03/17/25 22:00 03/17/25 21:34 Ondansetron HCl (Zofran) 4 mg Q4HP PRN IV NAUSEA / VOMITING 03/17/25 20:00 Enoxaparin Sodium (Lovenox) 30 mg DAILY@1800 SC 03/18/25 18:00 Acetaminophen (Tylenol Tablet) 650 mg Q6HP PRN PO PAIN SCALE 1-3 OR TEMP>100.4 03/17/25 20:00 Review of Systems Constitutional: No symptom reported Ears, Nose, & Throat: No symptom reported Eyes: No symptom reported Neurological: No symptoms reported Pulmonary/Respiratory: No symptoms reported Cardiovascular: Right-sided chest pain Gastrointestinal: No symptom reported Genitourinary: No symptom reported Musculoskeletal: No symptom reported Skin: No symptom reported Psychiatric: No symptom reported Endocrine: No symptom reported Hematologic/Lymphatic: No symptom reported Vital Signs Vital Signs Date Time Temp Pulse Resp B/P (MAP) Pulse Ox O2 Delivery O2 Flow Rate FiO2 03/18/25 09:22 167/88 03/18/25 09:09 97.9 60 16 99 97.9 03/18/25 08:00 Nasal Cannula* 1 24 Physical Exam General Appearance: Cooperative. Thin Pulmonary/Respiratory: Clear, bilateral breaths sounds. Cardiovascular/Chest: Regular rate and rhythm. Peripheral Pulses: 2+ Radial (R). 2+ Radial (L). 2+ Pedal (R). 2+ Pedal (L) Abdominal Exam: Normal bowel sounds. Ankle Exam: Negative ankle edema Lower extremities: Negative lower extremity edema Neuro/Mental Status: A/OX4, coherent. Thoughts/Psych: Normal thought pattern. Appropriate mood and affect. Good judgment and insight. Appearance: No acute distress. Skin Exam: Right face ecchymosis. Laceration to right eyebrow. Labs/Diagnostic Data Labs Test 03/18/25 06:07 03/17/25 20:49 03/17/25 15:25 Range/Units White Blood Count 5.7 4.4-10.8 10^3/uL Red Blood Count 3.73 L 4.0-5.20 10^6/uL Hemoglobin 12.3 12.2-16.2 g/dL Hematocrit 35.0 L 36.0-46.0 % Mean Corpuscular Volume 93.7 80.0-100.0 fL Mean Corpuscular Hemoglobin 33.1 H 28.0-32.0 pg Mean Corpuscular Hemoglobin Concent 35.3 32.0-36.0 g/dL Red Cell Distribution Width 14.9 H 11.8-14.3 % Platelet Count 176 140-450 10^3/uL Mean Platelet Volume 8.9 6.9-10.8 fL Neutrophils (%) (Auto) 65.7 37.0-80.0 % Lymphocytes (%) (Auto) 24.6 10.0-50.0 % Monocytes (%) (Auto) 6.5 0.0-12.0 % Eosinophils (%) (Auto) 2.6 0.0-7.0 % Basophils (%) (Auto) 0.6 0.0-2.0 % Neutrophils # (Auto) 3.7 1.6-8.6 10 ^3/uL Lymphocytes # (Auto) 1.4 0.4-5.4 10 ^3/uL Monocytes # (Auto) 0.4 0-1.3 10 ^3/uL Eosinophils # (Auto) 0.1 0-0.8 10 ^3/uL Basophils # (Auto) 0 0-0.2 10 ^3/uL Nucleated Red Blood Cells 0.0 % Sodium Level 143 136-145 mmol/L Potassium Level 3.3 L 3.5-5.1 mmol/L Chloride Level 107 98-107 mmol/L Carbon Dioxide Level 27 20-31 mmol/L Anion Gap 9 5-15 Blood Urea Nitrogen 18 9-23 mg/dL Creatinine 1.14 H 0.550-1.02 mg/dL Glomerular Filtration Rate Calc 46 >90 mL/min BUN/Creatinine Ratio 15.8 10.0-20.0 Serum Glucose 106 74-106 mg/dL Hemoglobin A1c 5.6 <5.7 % A1C Calcium Level 8.0 L 8.7-10.4 mg/dL Magnesium Level 2.0 1.6-2.6 mg/dL Triglycerides Level 135 < 150 mg/dL Cholesterol Level 83 < 200 mg/dL LDL Cholesterol 28 < 100 mg/dL HDL Cholesterol 35 L 40-59 mg/dL Thyroid Stimulating Hormone (TSH) 1.78 0.55-4.78 uIU/mL Troponin I High Sensitivity 530 *H </=34 ng/L Lactic Acid Level 1.2 0.4-2.0 mmol/L Assessment NSTEMI, rule out coronary artery disease Rule out structural heart disease Presence of permanent pacemaker ([employer]) Hypotension Dyslipidemia Hypokalemia COPD Thyroid disease Osteoporosis Glaucoma Plan/Recommendation We will continue with the following plan/recommendations (Dr. Lynch): * Transthoracic echocardiogram to evaluate cardiac function * Chest pain protocol * HEART score: 7 points * KIMBERLY score: 3 points * Single antiplatelet therapy and lipid-lowering agent * Close Cardiac surveillance Had a long discussion with patient's son who was at bedside. The patient and her son are unsure if the patient has ever undergone a coronary angiogram with left heart catheterization. Both are very poor historians. Given elevated troponin level and twelve lead electrocardiogram changes, the patient could possibly benefit from a coronary angiogram with left heart catheterization. Given advanced age and poor functional capacity, the patient's son would like to hold off at this time. The patient's son requests that we reach out to [place] to speak with the patient's primary doctor and inquire about any previous cor onary angiogram in the past. We will attempt to obtain previous medical records from [facility]. In the meantime, continue with medical management as per family request. Thank you for allowing us to care for this patient. Please call with any questions or concerns. Critical care time spent: 44 minutes This medical document was created using an electronic medical record system with voice recognition software and computerized dictation system. Although this document has been carefully reviewed, there might still be some phonetic and typographical errors. Occasional wrong-word or ``sound-alike substitutions ma y have occurred due to the inherent limitations of voice recognition software. These areas are purely typographical due to imperfections of the software programs and do not reflect any compromise in the patient's medical care. Please read the chart carefully and recognize, using context, where these substitutions have occurred. Plan discussed with: Patient NYHA Physical activity limitations: NA Date of Service: Mar 18, 2025 Billing Provider: JUAN MANUEL MOSER Cardiology Common Codes: [id number] INP/OBS CARE (High) Cardiology Consultation Codes: [id number] CONSULT <45MIN JUAN MANUEL MOSER Mar 18, 2025 10:12
--- NOTE | 2025-03-18 10:36 | DVHPN2 ---
Progress Note Date Seen: Mar 18, 2025 Medical Necessity Reason Pt with a Central, PICC or Fol: No Subjective Patient reports: No new complaints Review of Systems: HEENT:Normal, CVS:Normal, RESPIRATORY:Normal, GI:Normal, :Normal, MSK:Normal, NEURO:Normal Objective vital signs Vital Sign Date Time Temp Pulse Resp B/P (MAP) Pulse Ox O2 Delivery O2 Flow Rate FiO2 03/18/25 09:22 167/88 03/18/25 09:09 97.9 60 16 99 97.9 03/18/25 08:00 Nasal Cannula* 1 24 Total Intake and Output 03/17/25 03/17/25 03/18/25 14:59 22:59 06:59 Intake Total 100 ml Balance 100 ml medications Current Medications Medications Dose Ordered Sig/Devorah Route Start Time Stop Time Status Last Admin Dose Admin Nitroglycerin 0.4 mg Q5MINP PRN SL 03/17/25 20:00 Morphine Sulfate 2 mg Q30M PRN IV 03/17/25 20:00 Levothyroxine Sodium 50 mcg QAM@0600 PO 03/18/25 06:00 03/18/25 05:32 50 MCG Atorvastatin Calcium 40 mg HS PO 03/17/25 22:00 03/17/25 21:34 40 MG Ondansetron HCl 4 mg Q4HP PRN IV 03/17/25 20:00 Enoxaparin Sodium 30 mg DAILY@1800 SC 03/18/25 18:00 Acetaminophen 650 mg Q6HP PRN PO 03/17/25 20:00 Examination: GENERAL:Normal, HEENT:Normal, NECK:Normal, LUNGS:Normal, CVS:Normal, ABDOMEN:Normal, MSK:Normal, MSK:Abnormal (right frontal bruise), SKIN:Normal, NEURO:Normal, :Normal laboratory and microbiology Laboratory Tests 03/18/25 06:07 Test 03/18/25 06:07 Range/Units Serum Glucose 106 74-106 mg/dL Problem List/Assessment/Plan Problem List/Assessment/Plan #1 acute mi: per cardiology #2 syncopy with autonomic dysfunction #3 htn #4 acute renal failure ?vasomotor nephropathy #5 s/p pacer #6 copd #7 hypothyroidism advance care planning- full code- time spent 18 mins unstable for transfer Plan discussed with: Patient, Son Date of Service: Mar 18, 2025 Billing Provider: NII HAYES MD Common Visit Codes: [id number] INP/OBS CARE(HIGH) Secondary Visit Codes: [id number] CARE PLAN 30 MINUTES NII HAYES MD Mar 18, 2025 10:36
[2025-03-18] MEDS: POTASSIUM EFFERVESENT TAB 25 MEQ PO ONE (11:11)
--- NOTE | 2025-03-18 11:22 | DVH ---
CHEST RADIOGRAPH Indication: CP Technique: Single frontal view of the chest was obtained Comparison: XY CHEST PORTABLE on DOS: 03/22/23, CXR1 on DOS: 04/15/22, CHEST XRAY 1 VIEW on DOS: 04/15/22 FINDINGS: Lines and Tubes: Left pacemaker Lungs: No focal consolidation. Pleura: No effusion. No pneumothorax. Cardiomediastinal contours: Unremarkable Bones: No acute osseous abnormality. IMPRESSION: No acute cardiopulmonary disease.
[2025-03-18] MEDS: ENOXAPARIN SOD 30 MG/0.3 ML SYRINGE SC SCH (17:45)
[2025-03-18 20:01] LABS: Urine Amorphous Crystal FEW /hpf (None Seen); Urine Protein, UAD Negative (Negative); Urine WBC Clumps PRESENT /hpf (None Seen)
[2025-03-19] VITALS (7 sets, daily range): BP systolic 119–174; BP diastolic 75–104; PULSE 59–64; RESP 15–20; TEMP 97.5–98.1; O2SAT 92–97
[2025-03-19 06:37] LABS: Hematocrit 31.5 % (36.0-46.0); Hemoglobin 11.3 g/dL (12.2-16.2); Mean Corpuscular Hemoglobin 33.4 pg (28.0-32.0); Mean Corpuscular Volume 92.8 fL (80.0-100.0); Nucleated Red Blood Cells % 0.1 %
[2025-03-19 06:47] LABS: Anion Gap 7 (5-15); Carbon Dioxide 27 mmol/L (20-31); Chloride 106 mmol/L (98-107); Potassium 3.9 mmol/L (3.5-5.1); Sodium 140 mmol/L (136-145)
[2025-03-19 06:50] LABS: Calcium 8.3 mg/dL (8.7-10.4)
[2025-03-19 06:53] LABS: BUN/Creatinine Ratio 14.8 (10.0-20.0); Blood Urea Nitrogen 18 mg/dL (9-23); Glucose 91 mg/dL (74-106)
[2025-03-19 06:54] LABS: Magnesium 2.0 mg/dL (1.6-2.6)
--- NOTE | 2025-03-19 11:23 | DVHDS2 ---
Discharge Summary Date of Admission Mar 17, 2025 at 19:51 Date of Discharge: Mar 19, 2025 Labs/Diagnostic Data: Laboratory Results Test 03/19/25 06:00 03/18/25 18:41 03/18/25 06:07 03/17/25 20:49 White Blood Count 4.6 10^3/uL (4.4-10.8) Red Blood Count 3.39 10^6/uL (4.0-5.20) Hemoglobin 11.3 g/dL (12.2-16.2) Hematocrit 31.5 % (36.0-46.0) Mean Corpuscular Volume 92.8 fL (80.0-100.0) Mean Corpuscular Hemoglobin 33.4 pg (28.0-32.0) Mean Corpuscular Hemoglobin Concent 36.0 g/dL (32.0-36.0) Red Cell Distribution Width 15.2 % (11.8-14.3) Platelet Count 159 10^3/uL (140-450) Mean Platelet Volume 8.1 fL (6.9-10.8) Neutrophils (%) (Auto) 56.7 % (37.0-80.0) Lymphocytes (%) (Auto) 32.8 % (10.0-50.0) Monocytes (%) (Auto) 7.4 % (0.0-12.0) Eosinophils (%) (Auto) 2.6 % (0.0-7.0) Basophils (%) (Auto) 0.5 % (0.0-2.0) Neutrophils # (Auto) 2.6 10 ^3/uL (1.6-8.6) Lymphocytes # (Auto) 1.5 10 ^3/uL (0.4-5.4) Monocytes # (Auto) 0.3 10 ^3/uL (0-1.3) Eosinophils # (Auto) 0.1 10 ^3/uL (0-0.8) Basophils # (Auto) 0 10 ^3/uL (0-0.2) Nucleated Red Blood Cells 0.1 % Sodium Level 140 mmol/L (136-145) Potassium Level 3.9 mmol/L (3.5-5.1) Chloride Level 106 mmol/L (98-107) Carbon Dioxide Level 27 mmol/L (20-31) Anion Gap 7 (5-15) Blood Urea Nitrogen 18 mg/dL (9-23) Creatinine 1.22 mg/dL (0.550-1.02) Glomerular Filtration Rate Calc 42 mL/min (>90) BUN/Creatinine Ratio 14.8 (10.0-20.0) Serum Glucose 91 mg/dL (74-106) Calcium Level 8.3 mg/dL (8.7-10.4) Magnesium Level 2.0 mg/dL (1.6-2.6) Urine Color Yellow (Yellow) Urine Clarity Turbid (Clear) Urine pH 7.5 (5.0-9.0) Urine Specific Curtis 1.012 (1.001-1.035) Urine Protein Negative (Negative) Urine Ketones Negative (Negative) Urine Blood 1+ /uL (Negative) Urine Nitrite 2+ (Negative) Urine Bilirubin Negative (Negative) Urine Urobilinogen Normal mg/dL (Negative) Urine Leukocyte Esterase 3+ /uL (Negative) Urine RBC 15 /hpf (0 - 4) Urine WBC Clumps Present /hpf (None Seen) Urine Microscopic WBC 41 /HPF (0-5) Urine Squamous Epithelial Cells Few /hpf (<5) Urine Amorphous Crystals Few /hpf (None Seen) Urine Bacteria Few /hpf (None Seen) Urine Mucus Few (None Seen) Urine Glucose Normal mg/dL (Normal) Hemoglobin A1c 5.6 % A1C (<5.7) Triglycerides Level 135 mg/dL (< 150) Cholesterol Level 83 mg/dL (< 200) LDL Cholesterol 28 mg/dL (< 100) HDL Cholesterol 35 mg/dL (40-59) Thyroid Stimulating Hormone (TSH) 1.78 uIU/mL (0.55-4.78) Troponin I High Sensitivity 530 ng/L (</=34) Test 03/17/25 15:25 Lactic Acid Level 1.2 mmol/L (0.4-2.0) Other Laboratory Tests 03/19/25 06:00 Brief Hx & Hospital Course: see dictated note Condition at Discharge: Fair Final Diagnosis/Problems List acute mi Discharge Disposition: Acute Care Facility Discharge Instruct/Medications Diet: Cardiac 2g Na,low cholest Activity: No Restrictions, As Tolerated Follow Up/Referral: fu with nancie Medications: per oct Scheduled Aspirin (Asa), 81 MG PO DAILY, (Reported) Atorvastatin Calcium (Atorvastatin Calcium), 1 TAB PO DAILY, (Reported) Brimonidine Tartrate (Brimonidine Tartrate), 1 DROP EACHEYE BID, (Reported) Cholecalciferol (Vitamin D3), 1 TAB PO DAILY, (Reported) Cyclosporine (Ophth) (Restasis), 1 DROP EACHEYE BID, (Reported) Dorzolamide-Timolol (Dorzolamide Hcl/Timolol M), 1 DROP EACHEYE BID, (Reported) Hydrochlorothiazide (Hydrochlorothiazide), 1 TAB PO DAILY, (Reported) Levothyroxine Sodium (Synthroid Tablet), 1 TAB PO DAILY, (Reported) Lidocaine (Lidoderm 5% Topical Patch), 1 PATCH TOP DAILY, (Reported) Potassium Chloride (Potassium Chloride Cr), 1 TAB PO DAILY, (Reported) Miscellaneous Medications Lactulose (Lactulose), 10 GM PO, (Reported) Midodrine HCl (Midodrine Hydrochloride), 2.5 MG PO, (Reported) Discharge Statement: "Patient was advised to return to the ER or call 911 if any headaches, dizziness, shortness of breath, chest pain, abdominal pain, bleeding, fevers, or worsening of medical condition. Patient was counseled about treatment plan, medications, possible side effects, patientverbalized understanding. All questions were answered to the best of my ability. This discharge took greater then 30 minutes in planning, reviewing documentation, counseling the patient, and discussing with other team members." ASSESSMENT ASSESSMENT Assessment acute mi Date of Service: Mar 19, 2025 Billing Provider: NII HAYES MD Common Visit Codes: 63216-DXQ/OBS DISCH DAY >30min NII HAYES MD Mar 19, 2025 11:23
--- NOTE | 2025-03-19 11:54 | DVHDS ---
DATE OF DISCHARGE: 03/19/2025 TRANSFER SUMMARY DATE OF TRANSFER: 03/19/2025. HISTORY OF PRESENT ILLNESS: The patient is an 89-year-old lady who was admitted with low blood pressure, dizziness, and fall and has a history of hypotension, hypothyroidism, and TIA as well as a pacemaker. HOSPITAL COURSE: The patient had a CT of head that showed evidence of small right frontal scalp hematoma. The patient had a chest x-ray that showed no acute abnormality. The patient's troponin levels were elevated for acute MA. Creatinine was elevated at 1.4 that improved to 1.2. The patient was seen in Cardiology consult by Dr. Lynch. Echocardiogram is currently pending. The patient will now be transferred to [place] for further management. FINAL DIAGNOSES: Therefore, * Acute myocardial infarction. * Syncope with questionable autonomic dysfunction. * Hypertension. * Acute renal failure, questionable vasomotor nephropathy. * History of pacemaker. * COPD. * Hypothyroidism. * Right scalp hematoma. * The patient has UTI. Time spent in discharge planning and review of plan with family at bedside and nursing was 39 minutes. MD YAZMIN Valentino/ANDREW TID: [id number] RECEIPT: [id number]
--- NOTE | 2025-03-19 11:55 | DVHPN2 ---
Consult Progress Note Date Seen: Mar 19, 2025 Subjective Review of Systems: CVS:Normal, RESPIRATORY:Normal, NEURO:Normal Objective vital signs Vital Sign Date Time Temp Pulse Resp B/P (MAP) Pulse Ox O2 Delivery O2 Flow Rate FiO2 03/19/25 09:00 97.9 62 17 119/75 (90) 96 97.9 03/18/25 20:00 Nasal Cannula* 1 24 Total Intake and Output 03/18/25 03/18/25 03/19/25 15:00 23:00 07:00 Intake Total 760 ml 350 ml Output Total 2 ml Balance 760 ml 348 ml medications Current Medications Medications Dose Ordered Sig/Devorah Route Start Time Stop Time Status Last Admin Dose Admin Nitroglycerin 0.4 mg Q5MINP PRN SL 03/17/25 20:00 Morphine Sulfate 2 mg Q30M PRN IV 03/17/25 20:00 Levothyroxine Sodium 50 mcg QAM@0600 PO 03/18/25 06:00 03/19/25 06:02 50 MCG Atorvastatin Calcium 40 mg HS PO 03/17/25 22:00 03/18/25 21:52 40 MG Ondansetron HCl 4 mg Q4HP PRN IV 03/17/25 20:00 Enoxaparin Sodium 30 mg DAILY@1800 SC 03/18/25 18:00 03/18/25 17:45 30 MG Acetaminophen 650 mg Q6HP PRN PO 03/17/25 20:00 Hydralazine HCl 10 mg Q6HP PRN IV 03/18/25 10:45 Aspirin 81 mg DAILY PO 03/19/25 10:00 03/19/25 10:05 81 MG Ceftriaxone Sodium 50 ml @ 100 mls/hr DAILY@09 IV 03/20/25 09:00 UNV Examination: LUNGS:Normal, CVS:Normal (Atrial paced rhythm with underlying sinus rhythm), SKIN:Abnormal (Right facial hematoma), NEURO:Normal laboratory and microbiology Laboratory Tests 03/19/25 06:00 Test 03/19/25 06:00 Range/Units Serum Glucose 91 74-106 mg/dL Problem List/Assessment/Plan Problem List/Assessment/Plan Non ST-elevation myocardial infarction, possible Type I Presence of permanent pacemaker ([employer]) Rule out structural heart disease Hypotension Dyslipidemia Hypokalemia COPD Thyroid disease Osteoporosis Glaucoma Plan/Recommendation (Dr. Lynch) * Transthoracic echocardiogram to evaluate cardiac function * Chest pain protocol * HEART score: 7 points * KIMBERLY score: 3 points * Single-antiplatelet therapy and lipid-lowering agent * Close Cardiac surveillance Given elevated troponin level and twelve lead electrocardiogram changes, the patient could possibly benefit from a coronary angiogram with left heart catheterization. Given advanced age and poor functional capacity, the patient's son would like to hold off from invasive cardiac procedures at this time. Agree with transfer to [facility] for continuation of care from primary temporary help agency referral clerk. We will sign off at this time. Kindly call with any questions or concerns. This medical document was created using an electronic medical record system with voice recognition software and computerized dictation system. Although this document has been carefully reviewed, there might still be some phonetic and typographical errors. Occasional wrong-word or ``sound-alike substitutions may have occurred due to the inherent limitations of voice recognition software. These areas are purely typographical due to imperfections of the software programs and do not reflect any compromise in the patient's medical care. Please read the chart carefully and recognize, using context, where these substitutions have occurred. Plan discussed with: Patient, Daughter, Son, Other Date of Service: Mar 19, 2025 Billing Provider: STEVEN BAR Cardiology Common Codes: [id number] [facility](High STEVEN BAR Mar 19, 2025 11:55
[2025-03-19] MEDS: cefTRIAXone 1GM/50ML D5W 50 ML IV ONE (12:16)
[2025-03-19] MEDS: hydrALAZINE HCL 20 MG/ML VL IV PRN (17:23)
[2025-03-20] MEDS ORDERED: cefTRIAXone 1GM/50ML D5W 50 ML IV SCH (09:00)
--- NOTE | 2025-03-20 14:55 | ECG ---
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
--- NOTE | 2025-03-20 14:55 | ECG ---
[facility] Test Date: 2025-03-17 Test Time: 18:11:22 Pat Name: KORINA FOREMANNathanielDAVID Department: ER Room: 0221T B Gender: F Hand Riveter: MADINA : 1935 Requested By: MANUEL PERRY Order Number: [id number] Reading MD: Vadim Lynch Measurements Intervals [place] Rate: 60 P: 0 RI: 74 QRS: -13 QRSD: 119 T: 158 QT: 450 QTc: 450 Interpretive Statements Atrial-paced rhythm Nonspecific intraventricular conduction delay Inferior infarct, old Consider anterior infarct Lateral leads are also involved Electronically Signed On 03-23-2025 17:48:26 PDT by Vaidm Lynch Please click the below link to view image of tracing.
== END 2025-03-19 20:30 | disposition short-term general hospital (02) | DRG 280 ==
LOC: ER 14:54 → EDBD 14:54 → OVERFLOW 19:51 → TELE-CENTR 21:45
PROVIDERS: ADMIT Internal Medicine; ATTEND Internal Medicine
DX: I21.4 Non-ST elevation (NSTEMI) myocardial infarction (principal); N17.0 Acute kidney failure with tubular necrosis; N39.0 Urinary tract infection, site not specified; G90.89 Other disorders of autonomic nervous system; I95.9 Hypotension, unspecified; E03.9 Hypothyroidism, unspecified; J44.9 Chronic obstructive pulmonary disease, unspecified; I10 Essential (primary) hypertension; E78.5 Hyperlipidemia, unspecified; I25.10 Atherosclerotic heart disease of native coronary artery without angina pectoris; E87.6 Hypokalemia; H40.89 Other specified glaucoma; S00.03XA Contusion of scalp, initial encounter; M81.0 Age-related osteoporosis without current pathological fracture; Z88.8 Allergy status to other drugs, medicaments and biological substances; Z95.0 Presence of cardiac pacemaker; Z90.710 Acquired absence of both cervix and uterus; Z86.73 Personal history of transient ischemic attack (TIA), and cerebral infarction without residual deficits; Z83.3 Family history of diabetes mellitus; Z80.8 Family history of malignant neoplasm of other organs or systems; Z82.49 Family history of ischemic heart disease and other diseases of the circulatory system; Z90.49 Acquired absence of other specified parts of digestive tract; W18.39XA Other fall on same level, initial encounter; Y93.89 Activity, other specified; Y92.89 Other specified places as the place of occurrence of the external cause; Y99.8 Other external cause status
CPT/HCPCS: 36415; 70450; 71045; 80048; 80061; 81001; 83036; 83605; 83735; 84443; 84484; 85025; 87040; 87086; 93005; 93306; 96372; 97163; 99291; G0378